=== PATIENT | female | born 1940 | race Caucasian/White ===

== ENCOUNTER 2017-02-18 17:44 | Inpatient (IN) | payer OTHER ==
[~2017-02-18] VITALS: Ht 172.7 cm; Wt 67.1 kg
[~2017-02-18 17:44] MED LIST: ASPIRIN EC325 MG PO; ATORVASTATIN CA40 MG PO; EFFIENT10 MG PO; LISINOPRIL5 MG PO; LOPRESSOR25 MG PO; NITROSTAT0.4 MG SL; SIMVASTATIN10 MG PO
[2017-02-18 19:11] LABS: CHLORIDE 101 mEq/L (99-109); POTASSIUM 3.9 mEq/L (3.7-5.4); SODIUM 138 mEq/L (136-147)
[2017-02-18 19:13] LABS: GLUCOSE 200 mg/dL (70-99)
[2017-02-18 19:14] LABS: ANION GAP 18 MEQ/L (2-14)
[2017-02-18 19:16] LABS: ALKALINE PHOSPHATASE 87 IU/L (3-129)
[2017-02-18 19:17] LABS: GFR ESTIMATE (CALCULATED) 58 mL/min/
[2017-02-18 19:18] LABS: UREA NITROGEN (BUN) 16 mg/dL (9-23)
[2017-02-18 19:20] LABS: LIPASE 38 U/L (1.0-51.0)
[2017-02-18 19:26] LABS: BASOPHIL COUNT 0.1 K/uL (0-0.1); EOSINOPHIL (%) 1.2 % (0-5); EOSINOPHIL COUNT 0.2 K/uL (0-0.3); HEMATOCRIT 51.5 % (36.0-46.0); IMMATURE GRANULOCYTE (%) 1.4 % (0.0-0.7); IMMATURE GRANULOCYTE COUNT 0.2 K/uL; LYMPHOCYTE COUNT 2.3 K/uL (1.0-2.8); MCH 32.9 PG (29.0-34.0); MCHC 32.8 G/DL (30.0-36.0); MCV 100.4 FL (83-99); MEAN PLAT.VOLUME 11.3 uM^3 (9.5-12.4); MONOCYTE (%) 4.9 % (3-12); MONOCYTE COUNT 0.8 K/uL (0-0.8); NEUTROPHIL (%) 77.3 % (45-76); PLATELET COUNT 718 K/uL (156-360); RBC DIS.WIDTH-CV 13.4 % (11.8-14.6); RED BLOOD COUNT 5.13 M/uL (3.80-5.20); WHITE BLOOD COUNT 15.5 K/uL (4.1-10.2)
[2017-02-18] MEDS ORDERED: EFFIENT10 MG PO (22:12)
[2017-02-18] MEDS ORDERED: LO-DOSE ASPIRIN81 M1 PO (22:13)
[2017-02-18] MEDS ORDERED: PSORIASIS CREAM TP (22:15)
[2017-02-18 22:18] LABS: ADD MIUA? NO; BILIRUBIN NEGATIVE; BLOOD NEGATIVE; COLOR YELLOW ((YELLOW)); GLUCOSE (STRIP) 50; KETONES 80; LEUKOCYTES NEGATIVE; NITRITE NEGATIVE; PROTEIN (STRIP) NEGATIVE; UCUL ADDED? NO; UROBILINOGEN 0.2 MG/DL (0.2-1.0)
[2017-02-18 22:25] LABS: SPECIFIC GRAVITY 1.062 (1.000-1.030)
[2017-02-19] VITALS (28 sets, daily range): BP systolic 59–148; BP diastolic 35–100
[2017-02-19 06:18] LABS: HEMATOCRIT 55.5 % (36.0-46.0); MCH 33.1 PG (29.0-34.0); MCHC 31.7 G/DL (30.0-36.0); MCV 104.3 FL (83-99); MEAN PLAT.VOLUME 11.2 uM^3 (9.5-12.4); PLATELET COUNT 652 K/uL (156-360); RBC DIS.WIDTH-CV 13.7 % (11.8-14.6); RBC DIS.WIDTH-SD 53.3 % (39-53); RED BLOOD COUNT 5.32 M/uL (3.80-5.20)
[2017-02-19 06:28] LABS: BASE EXCESS -10.4 mEq/L (-3 to +3); BICARBONATE 15.7 mEq/L (22-26); CARBOXY HGB 1.6 % (0-5); METHEMOGLOBIN 1.6 % (0-1.5); PCO2 35 mm Hg (35-45); PO2 119 mm Hg (80-100)
[2017-02-19 06:29] LABS: COMMENTS - BLOOD GASES C+; DEVICE 840; FI02 40 %; MECHANICAL RATE 14 resp/min; MODE AC; SITE RB; TIDAL VOLUME 450 ML; TOTAL RESP RATE 14 resp/min; pH 7.26 (7.35-7.45)
[2017-02-19 06:35] LABS: WHITE BLOOD COUNT 36.9 K/uL (4.1-10.2)
[2017-02-19 06:35] LABS: TRIGLYCERIDES 102 MG/DL (Normal: <150)
[2017-02-19 06:45] LABS: ALKALINE PHOSPHATASE 89 IU/L (3-129); ANION GAP 14 MEQ/L (2-14); CHLORIDE 111 MEQ/L (99-109); GFR ESTIMATE (CALCULATED) > 59 mL/min/; GLUCOSE 182 mg/dL (70-99); MAGNESIUM 1.9 mg/dl (1.3-2.7); SAMPLE HEMOLYSIS CHECK 1; SAMPLE ICTERIC CHECK 0; SAMPLE LIPEMIA CHECK 0; SODIUM 141 MEQ/L (136-147); UREA NITROGEN (BUN) 17 mg/dL (9-23)
[2017-02-19 06:48] LABS: METH RESISTANT S AUREUS PCR NEGATIVE (NEGATIVE)
[2017-02-19 06:51] LABS: POTASSIUM 5.3 MEQ/L (3.7-5.4)
[2017-02-19 06:52] LABS: PROBE CHECK PASS; SPECIMEN PROCESSING CONTROL PASS
[2017-02-19 08:01] LABS: BASOPHIL COUNT 0.1 K/uL (0-0.1); EOSINOPHIL (%) 0 % (0-5); IMMATURE GRANULOCYTE (%) 4.3 % (0.0-0.7); IMMATURE GRANULOCYTE COUNT 1.6 K/uL; INSTRUMENT ABS NEUTROPHIL CT 31.3 K/uL; LYMPHOCYTE COUNT 1.4 K/uL (1.0-2.8); MONOCYTE (%) 6.9 % (3-12); MONOCYTE COUNT 2.5 K/uL (0-0.8); NEUTROPHIL (%) 84.7 % (45-76); NEUTROPHIL COUNT 31.3 K/uL (1.8-6.4)
[2017-02-19 09:39] LABS: INTER. NORMALIZED RATIO 1.3; PROTHROMBIN TIME 13.2 (9.2-11.2); PTT 32.2 (25-32)
[2017-02-19 09:55] LABS: TROP-I INTERPRETATION NEGATIVE; TROPONIN-I 0.27 ng/mL (0.0-0.30)
[2017-02-19 11:52] LABS: BASOPHIL COUNT 0.1 K/uL (0-0.1); EOSINOPHIL (%) 0 % (0-5); HEMATOCRIT 46.8 % (36.0-46.0); IMMATURE GRANULOCYTE (%) 4.1 % (0.0-0.7); IMMATURE GRANULOCYTE COUNT 1.1 K/uL; INSTRUMENT ABS NEUTROPHIL CT 22.9 K/uL; LYMPHOCYTE COUNT 1.3 K/uL (1.0-2.8); MCH 32.9 PG (29.0-34.0); MCHC 31.6 G/DL (30.0-36.0); MEAN PLAT.VOLUME 11.5 uM^3 (9.5-12.4); MONOCYTE (%) 6.9 % (3-12); MONOCYTE COUNT 1.9 K/uL (0-0.8); NEUTROPHIL (%) 83.9 % (45-76); NEUTROPHIL COUNT 22.9 K/uL (1.8-6.4); PLATELET COUNT 648 K/uL (156-360); RBC DIS.WIDTH-CV 13.7 % (11.8-14.6); RBC DIS.WIDTH-SD 52.9 % (39-53); WHITE BLOOD COUNT 27.2 K/uL (4.1-10.2)
[2017-02-19 14:48] LABS: HEMATOCRIT 42.1 % (36.0-46.0); MCV 102.7 FL (83-99)
[2017-02-19 15:11] LABS: ANION GAP 12 MEQ/L (2-14); CHLORIDE 111 MEQ/L (99-109); GFR ESTIMATE (CALCULATED) > 59 mL/min/; GLUCOSE 182 mg/dL (70-99); SAMPLE HEMOLYSIS CHECK 2; SAMPLE ICTERIC CHECK 0; SAMPLE LIPEMIA CHECK 0; SODIUM 138 MEQ/L (136-147); UREA NITROGEN (BUN) 21 mg/dL (9-23)
[2017-02-19 15:15] LABS: POTASSIUM 5.5 MEQ/L (3.7-5.4)
[2017-02-19 19:53] LABS: TROP-I INTERPRETATION INDETERMINATE; TROPONIN-I 0.34 ng/mL (0.0-0.30)
[2017-02-20] VITALS (12 sets, daily range): BP systolic 112–137; BP diastolic 57–69
[2017-02-20 00:44] LABS: HEMATOCRIT 31.5 % (36.0-46.0)
[2017-02-20 07:05] LABS: EOSINOPHIL (%) 0.1 % (0-5); HEMATOCRIT 28.2 % (36.0-46.0); IMMATURE GRANULOCYTE (%) 1.7 % (0.0-0.7); IMMATURE GRANULOCYTE COUNT 0.3 K/uL; INSTRUMENT ABS NEUTROPHIL CT 13.8 K/uL; LYMPHOCYTE COUNT 1.8 K/uL (1.0-2.8); MCH 33.6 PG (29.0-34.0); MCV 101.8 FL (83-99); MONOCYTE (%) 8.3 % (3-12); MONOCYTE COUNT 1.4 K/uL (0-0.8); NEUTROPHIL (%) 79.3 % (45-76); NEUTROPHIL COUNT 13.8 K/uL (1.8-6.4); RBC DIS.WIDTH-CV 13.9 % (11.8-14.6)
[2017-02-20 07:06] LABS: ANION GAP 11 MEQ/L (2-14); CHLORIDE 114 MEQ/L (99-109); GFR ESTIMATE (CALCULATED) > 59 mL/min/; SAMPLE HEMOLYSIS CHECK 0; SAMPLE ICTERIC CHECK 0; SAMPLE LIPEMIA CHECK 0; SODIUM 143 MEQ/L (136-147); UREA NITROGEN (BUN) 18 mg/dL (9-23)
[2017-02-20 07:08] LABS: GLUCOSE 90 mg/dL (70-99); POTASSIUM 3.4 MEQ/L (3.7-5.4)
[2017-02-20 07:09] LABS: RED BLOOD COUNT 2.77 M/uL (3.80-5.20); WHITE BLOOD COUNT 17.4 K/uL (4.1-10.2)
[2017-02-20 08:17] LABS: HEMATOLOGY COMMENT 1 SMEAR COMPATIBLE; MEAN PLAT.VOLUME 11.4 uM^3 (9.5-12.4)
[2017-02-20 08:19] LABS: PLATELET COUNT 310 K/uL (156-360)
[2017-02-20 12:39] LABS: TROP-I INTERPRETATION NEGATIVE; TROPONIN-I 0.22 ng/mL (0.0-0.30)
[2017-02-20 14:20] LABS: HEMATOCRIT 27.5 % (36.0-46.0); MCV 101.1 FL (83-99)
[2017-02-21 04:56] LABS: BASE EXCESS -2.2 mEq/L (-3 to +3); BICARBONATE 20.3 mEq/L (22-26); CARBOXY HGB 1.9 % (0-5); COMMENTS - BLOOD GASES C+; DEVICE VENTILATOR; FI02 24 %; METHEMOGLOBIN 1.3 % (0-1.5); MODE AC; PCO2 26 mm Hg (35-45); PO2 91 mm Hg (80-100); SITE LR A LINE
[2017-02-21 04:57] LABS: MECHANICAL RATE 20 resp/min; PEEP 5 CM/H20; TIDAL VOLUME 450 ML; TOTAL RESP RATE 20 resp/min
[2017-02-21 05:55] LABS: EOSINOPHIL (%) 0.3 % (0-5); EOSINOPHIL COUNT 0.1 K/uL (0-0.3); HEMATOCRIT 24.1 % (36.0-46.0); IMMATURE GRANULOCYTE (%) 2.9 % (0.0-0.7); IMMATURE GRANULOCYTE COUNT 0.4 K/uL; INSTRUMENT ABS NEUTROPHIL CT 12.3 K/uL; LYMPHOCYTE COUNT 1.3 K/uL (1.0-2.8); MCH 33.2 PG (29.0-34.0); MCHC 32.8 G/DL (30.0-36.0); MCV 101.3 FL (83-99); MEAN PLAT.VOLUME 11.8 uM^3 (9.5-12.4); MONOCYTE (%) 6.5 % (3-12); NEUTROPHIL (%) 81.3 % (45-76); NEUTROPHIL COUNT 12.3 K/uL (1.8-6.4); PLATELET COUNT 224 K/uL (156-360); RBC DIS.WIDTH-CV 14.2 % (11.8-14.6); RBC DIS.WIDTH-SD 51.8 % (39-53); RED BLOOD COUNT 2.38 M/uL (3.80-5.20); WHITE BLOOD COUNT 15.2 K/uL (4.1-10.2)
[2017-02-21 06:17] LABS: ANION GAP 11 MEQ/L (2-14); CHLORIDE 113 MEQ/L (99-109); GFR ESTIMATE (CALCULATED) > 59 mL/min/; GLUCOSE 89 mg/dL (70-99); POTASSIUM 3.3 MEQ/L (3.7-5.4); SAMPLE HEMOLYSIS CHECK 0; SAMPLE ICTERIC CHECK 0; SAMPLE LIPEMIA CHECK 0; SODIUM 143 MEQ/L (136-147); UREA NITROGEN (BUN) 16 mg/dL (9-23)
[2017-02-21 09:07] LABS: BASE EXCESS -1.8 mEq/L (-3 to +3); CARBOXY HGB 1.8 % (0-5); COMMENTS - BLOOD GASES NAC+; METHEMOGLOBIN 1.8 % (0-1.5); PCO2 38 mm Hg (35-45); PO2 68 mm Hg (80-100); SITE ALINE; pH 7.39 (7.35-7.45)
[2017-02-21 09:08] LABS: DEVICE PB 840; FI02 24 %; MODE SPONT TC; PEEP 5 CM/H20; TOTAL RESP RATE 20 resp/min
[2017-02-21 10:00] VITALS: BP 105/61
[2017-02-21 21:00] VITALS: BP 126/68
[2017-02-22] VITALS (9 sets, daily range): BP systolic 115–138; BP diastolic 58–69
[2017-02-22 06:35] LABS: EOSINOPHIL (%) 0.8 % (0-5); EOSINOPHIL COUNT 0.1 K/uL (0-0.3); HEMATOCRIT 26.9 % (36.0-46.0); IMMATURE GRANULOCYTE (%) 2.7 % (0.0-0.7); IMMATURE GRANULOCYTE COUNT 0.4 K/uL; INSTRUMENT ABS NEUTROPHIL CT 11.7 K/uL; LYMPHOCYTE COUNT 1.2 K/uL (1.0-2.8); MCH 33.3 PG (29.0-34.0); MCHC 32.3 G/DL (30.0-36.0); MCV 103.1 FL (83-99); MEAN PLAT.VOLUME 11.8 uM^3 (9.5-12.4); MONOCYTE (%) 6.6 % (3-12); NEUTROPHIL (%) 81.2 % (45-76); NEUTROPHIL COUNT 11.7 K/uL (1.8-6.4); PLATELET COUNT 292 K/uL (156-360); RED BLOOD COUNT 2.61 M/uL (3.80-5.20); WHITE BLOOD COUNT 14.4 K/uL (4.1-10.2)
[2017-02-22 06:46] LABS: ANION GAP 13 MEQ/L (2-14); CHLORIDE 110 MEQ/L (99-109); GFR ESTIMATE (CALCULATED) > 59 mL/min/; GLUCOSE 75 mg/dL (70-99); POTASSIUM 3.4 MEQ/L (3.7-5.4); SAMPLE HEMOLYSIS CHECK 0; SAMPLE ICTERIC CHECK 0; SAMPLE LIPEMIA CHECK 0; SODIUM 147 MEQ/L (136-147); UREA NITROGEN (BUN) 18 mg/dL (9-23)
[2017-02-22 06:54] LABS: PLAT.SUFFICIENCY ADEQUATE
[2017-02-23] VITALS (8 sets, daily range): BP systolic 112–136; BP diastolic 57–66
[2017-02-23 06:53] LABS: EOSINOPHIL (%) 1.6 % (0-5); EOSINOPHIL COUNT 0.2 K/uL (0-0.3); HEMATOCRIT 27.7 % (36.0-46.0); IMMATURE GRANULOCYTE (%) 0.7 % (0.0-0.7); IMMATURE GRANULOCYTE COUNT 0.1 K/uL; INSTRUMENT ABS NEUTROPHIL CT 11.1 K/uL; LYMPHOCYTE COUNT 1.1 K/uL (1.0-2.8); MCH 33.3 PG (29.0-34.0); MCHC 32.1 G/DL (30.0-36.0); MCV 103.7 FL (83-99); MEAN PLAT.VOLUME 11.9 uM^3 (9.5-12.4); MONOCYTE (%) 7.3 % (3-12); NEUTROPHIL (%) 81.9 % (45-76); NEUTROPHIL COUNT 11.1 K/uL (1.8-6.4); PLATELET COUNT 345 K/uL (156-360); RBC DIS.WIDTH-CV 14.1 % (11.8-14.6); RBC DIS.WIDTH-SD 53.5 % (39-53); RED BLOOD COUNT 2.67 M/uL (3.80-5.20); WHITE BLOOD COUNT 13.6 K/uL (4.1-10.2)
[2017-02-23 07:59] LABS: ANION GAP 11 MEQ/L (2-14); CHLORIDE 111 MEQ/L (99-109); GFR ESTIMATE (CALCULATED) > 59 mL/min/; GLUCOSE 75 mg/dL (70-99); MAGNESIUM 2.1 mg/dl (1.3-2.7); SODIUM 148 MEQ/L (136-147); UREA NITROGEN (BUN) 20 mg/dL (9-23)
[2017-02-23 08:02] LABS: POTASSIUM 3.6 MEQ/L (3.7-5.4)
[2017-02-24] VITALS (8 sets, daily range): BP systolic 115–139; BP diastolic 56–75
[2017-02-24 07:10] LABS: EOSINOPHIL (%) 2.6 % (0-5); EOSINOPHIL COUNT 0.3 K/uL (0-0.3); HEMATOCRIT 31.2 % (36.0-46.0); IMMATURE GRANULOCYTE (%) 1.3 % (0.0-0.7); IMMATURE GRANULOCYTE COUNT 0.2 K/uL; INSTRUMENT ABS NEUTROPHIL CT 9.4 K/uL; LYMPHOCYTE COUNT 1.3 K/uL (1.0-2.8); MCH 33.2 PG (29.0-34.0); MCHC 32.7 G/DL (30.0-36.0); MCV 101.6 FL (83-99); MEAN PLAT.VOLUME 11.6 uM^3 (9.5-12.4); MONOCYTE (%) 7.6 % (3-12); MONOCYTE COUNT 0.9 K/uL (0-0.8); NEUTROPHIL (%) 77.7 % (45-76); NEUTROPHIL COUNT 9.4 K/uL (1.8-6.4); PLATELET COUNT 427 K/uL (156-360); RBC DIS.WIDTH-CV 13.8 % (11.8-14.6); RBC DIS.WIDTH-SD 50.6 % (39-53); RED BLOOD COUNT 3.07 M/uL (3.80-5.20); WHITE BLOOD COUNT 12.1 K/uL (4.1-10.2)
[2017-02-24 07:40] LABS: ANION GAP 8 MEQ/L (2-14); CHLORIDE 108 MEQ/L (99-109); GFR ESTIMATE (CALCULATED) > 59 mL/min/; MAGNESIUM 2.1 mg/dl (1.3-2.7); POTASSIUM 3.6 MEQ/L (3.7-5.4); SAMPLE HEMOLYSIS CHECK 0; SAMPLE ICTERIC CHECK 0; SAMPLE LIPEMIA CHECK 0; SODIUM 146 MEQ/L (136-147); UREA NITROGEN (BUN) 17 mg/dL (9-23)
[2017-02-24 07:49] LABS: GLUCOSE 114 mg/dL (70-99)
[2017-02-25 04:00] VITALS: BP 102/58
[2017-02-25 06:53] LABS: EOSINOPHIL (%) 4.3 % (0-5); EOSINOPHIL COUNT 0.5 K/uL (0-0.3); HEMATOCRIT 30.9 % (36.0-46.0); IMMATURE GRANULOCYTE (%) 2.6 % (0.0-0.7); IMMATURE GRANULOCYTE COUNT 0.3 K/uL; INSTRUMENT ABS NEUTROPHIL CT 7.6 K/uL; LYMPHOCYTE COUNT 1.5 K/uL (1.0-2.8); MCH 32.9 PG (29.0-34.0); MCV 102.7 FL (83-99); MEAN PLAT.VOLUME 11.5 uM^3 (9.5-12.4); MONOCYTE (%) 9.4 % (3-12); NEUTROPHIL (%) 69.8 % (45-76); NEUTROPHIL COUNT 7.6 K/uL (1.8-6.4); PLATELET COUNT 429 K/uL (156-360); RBC DIS.WIDTH-SD 52.5 % (39-53); RED BLOOD COUNT 3.01 M/uL (3.80-5.20); WHITE BLOOD COUNT 10.8 K/uL (4.1-10.2)
[2017-02-25 07:18] LABS: ANION GAP 7 MEQ/L (2-14); CHLORIDE 108 MEQ/L (99-109); GFR ESTIMATE (CALCULATED) > 59 mL/min/; GLUCOSE 110 mg/dL (70-99); MAGNESIUM 1.8 mg/dl (1.3-2.7); POTASSIUM 3.4 MEQ/L (3.7-5.4); SAMPLE HEMOLYSIS CHECK 0; SAMPLE ICTERIC CHECK 0; SAMPLE LIPEMIA CHECK 0; SODIUM 143 MEQ/L (136-147); UREA NITROGEN (BUN) 15 mg/dL (9-23)
[2017-02-25 07:50] VITALS: BP 128/60
[2017-02-25 12:33] VITALS: BP 110/57
[2017-02-25 17:04] VITALS: BP 134/70
== END 2017-02-25 18:50 | disposition home or self-care (01) | DRG 335 ==
LOC: EME 17:44 → SDC 02-19 02:38 → 4WEST 02-19 04:18 → 4EAST 02-19 04:18 → 4WEST 02-22 13:56 → 4EAST 02-24 04:24
PROVIDERS: Emergency Medicine; Internal Medicine Nephrology; Internal Medicine Pulmonary Disease; Surgery
PROC: 0DTJ0ZZ Resection of Appendix, Open Approach (ICD-10-PCS; principal; 2017-02-19)
PROC: 0DN80ZZ Release Small Intestine, Open Approach (ICD-10-PCS; principal; 2017-02-19)
PROC: 02HV33Z Insertion of Infusion Device into Superior Vena Cava, Percutaneous Approach (ICD-10-PCS; 2017-02-19)
PROC: 0W9B30Z Drainage of Left Pleural Cavity with Drainage Device, Percutaneous Approach (ICD-10-PCS; 2017-02-19)
PROC: 0WJP0ZZ Inspection of Gastrointestinal Tract, Open Approach (ICD-10-PCS; 2017-02-20)
DX: K56.5 Intestinal adhesions [bands] with obstruction (postinfection) (principal); K55.019 Acute (reversible) ischemia of small intestine, extent unspecified; K66.1 Hemoperitoneum; J95.811 Postprocedural pneumothorax; J95.812 Postprocedural air leak; D64.9 Anemia, unspecified; E87.2 Acidosis; I25.10 Atherosclerotic heart disease of native coronary artery without angina pectoris; I10 Essential (primary) hypertension; E78.5 Hyperlipidemia, unspecified; L40.9 Psoriasis, unspecified; R73.9 Hyperglycemia, unspecified; D47.3 Essential (hemorrhagic) thrombocythemia; E86.0 Dehydration; E87.6 Hypokalemia; Z95.5 Presence of coronary angioplasty implant and graft; I25.2 Old myocardial infarction; Z79.82 Long term (current) use of aspirin
CPT/HCPCS: 36600; 36620; 70450; 71010; 71020; 74020; 74177; 80048; 80048 91; 80053; 81003; 82803; 83605; 83690; 83735; 84100; 84478; 84484; 85014; 85018; 85025; 85025 91; 85610; 85730; 86900; 86901; 86920; 87070; 87205; 87641; 88302; 93005; 94002; 94003; 94799; 97530 GO; 99281; 99285; C1729; C9113; J0330; J1100; J1644; J1940; J2250; J2405; J2543; J2704; J3010; J3480; J7030; J7040; J7050; J7120; P9045; P9047

== ENCOUNTER 2017-02-28 16:26 | Inpatient (IN) | payer OTHER ==
[~2017-02-28] VITALS: Ht 172.7 cm; Wt 71.0 kg
[~2017-02-28 16:26] MED LIST changes: +LO-DOSE ASPIRIN81 M1 PO; +PSORIASIS CREAM TP
[2017-02-28 18:05] LABS: HEMATOCRIT 26.8 % (36.0-46.0); MCH 33.1 PG (29.0-34.0); MCHC 32.8 G/DL (30.0-36.0); MCV 100.8 FL (83-99); MEAN PLAT.VOLUME 11.6 uM^3 (9.5-12.4); PLATELET COUNT 525 K/uL (156-360); RBC DIS.WIDTH-CV 14.1 % (11.8-14.6); RBC DIS.WIDTH-SD 50.9 % (39-53); RED BLOOD COUNT 2.66 M/uL (3.80-5.20); WHITE BLOOD COUNT 12.6 K/uL (4.1-10.2)
[2017-02-28 18:14] LABS: CHLORIDE 103 mEq/L (99-109); POTASSIUM 3.2 mEq/L (3.7-5.4); SODIUM 137 mEq/L (136-147)
[2017-02-28 18:16] LABS: GLUCOSE 114 mg/dL (70-99)
[2017-02-28 18:17] LABS: ANION GAP 10 MEQ/L (2-14)
[2017-02-28 18:18] LABS: TOTAL BILIRUBIN 1.2 mg/dL (0.0-1.0)
[2017-02-28 18:20] LABS: ALKALINE PHOSPHATASE 225 IU/L (3-129); GFR ESTIMATE (CALCULATED) > 59 mL/min/
[2017-02-28 18:21] LABS: UREA NITROGEN (BUN) 18 mg/dL (9-23)
[2017-02-28 18:44] LABS: ABS NEUTROPHIL COUNT 9.8; ANISOCYTOSIS 2+; BAND NEUTROPHILS 28.3 % (0-8.0); BASOPHILS 0.9 %; EOSINOPHIL ABS CT 0; INSTRUMENT ABS NEUTROPHIL CT 8.9 K/uL; LYMPHOCYTES 4.4 % (15.0-45.0); MACROCYTES 2+; METAMYELOCYTES 2.7 %; MYELOCYTES 2.6 %; PLAT.SUFFICIENCY INCREASED; POIKILOCYTOSIS 1+; SEG.NEUTROPHILS 49.6 % (46.0-76.0); SMUDGE CELLS 11.5
[2017-02-28 21:53] LABS: HEMATOCRIT 24.3 % (36.0-46.0); MCV 99.2 FL (83-99)
[2017-02-28 22:14] LABS: TROP-I INTERPRETATION NEGATIVE; TROPONIN-I < 0.01 ng/mL (0.0-0.30)
[2017-03-01] VITALS (17 sets, daily range): BP systolic 83–140; BP diastolic 48–66
[2017-03-01 06:20] LABS: MCH 32.8 PG (29.0-34.0); MCHC 32.1 G/DL (30.0-36.0); MCV 102.2 FL (83-99); MEAN PLAT.VOLUME 12.4 uM^3 (9.5-12.4); NRBC (%) 0.2 /100 WBC (0-0); PLATELET COUNT 430 K/uL (156-360); RBC DIS.WIDTH-CV 14.4 % (11.8-14.6); RBC DIS.WIDTH-SD 52.1 % (39-53); WHITE BLOOD COUNT 9.2 K/uL (4.1-10.2)
[2017-03-01 06:24] LABS: ALKALINE PHOSPHATASE 124 IU/L (3-129); ANION GAP 11 MEQ/L (2-14); CHLORIDE 106 MEQ/L (99-109); GFR ESTIMATE (CALCULATED) > 59 mL/min/; GLUCOSE 99 mg/dL (70-99); MAGNESIUM 1.6 mg/dl (1.3-2.7); SAMPLE HEMOLYSIS CHECK 0; SAMPLE ICTERIC CHECK 0; SAMPLE LIPEMIA CHECK 0; SODIUM 140 MEQ/L (136-147); TOTAL BILIRUBIN 0.6 MG/DL (0.0-1.0); UREA NITROGEN (BUN) 17 mg/dL (9-23)
[2017-03-01 06:35] LABS: RED BLOOD COUNT 1.86 M/uL (3.80-5.20)
[2017-03-01 07:07] LABS: ABS NEUTROPHIL COUNT 6.2; ANISOCYTOSIS 1+; BURR CELLS 1+; EOSINOPHIL ABS CT 0.1; EOSINOPHILS 0.9 % (0-5.0); INSTRUMENT ABS NEUTROPHIL CT 5.7 K/uL; LYMPHOCYTES 15.9 % (15.0-45.0); MACROCYTES 1+; METAMYELOCYTES 1.8 %; MYELOCYTES 2.7 %; OVALOCYTES 1+; PLAT.SUFFICIENCY INCREASED; POIKILOCYTOSIS 1+; POLYCHROMASIA 1+; SCHISTOCYTES 1+; SEG.NEUTROPHILS 52.2 % (46.0-76.0)
[2017-03-01 15:15] LABS: HEMATOCRIT 21.8 % (36.0-46.0); MCH 31.5 PG (29.0-34.0); MCHC 33.9 G/DL (30.0-36.0); MEAN PLAT.VOLUME 11.9 uM^3 (9.5-12.4); PLATELET COUNT 356 K/uL (156-360); RBC DIS.WIDTH-CV 17.1 % (11.8-14.6); RBC DIS.WIDTH-SD 56.1 % (39-53)
[2017-03-01 15:29] LABS: MCV 92.8 FL (83-99); RED BLOOD COUNT 2.35 M/uL (3.80-5.20)
[2017-03-01 21:35] LABS: HEMATOCRIT 34.2 % (36.0-46.0); MCH 30.8 PG (29.0-34.0); MCHC 33.9 G/DL (30.0-36.0); MCV 90.7 FL (83-99); NRBC (%) 0.5 /100 WBC (0-0); PLAT.SUFFICIENCY ADEQUATE; PLATELET CLUMPS PRESENT - PLATELET COUNT APPEARS ADQ.; PLATELET COUNT UNABLE TO REPORT K/uL (156-360); RBC DIS.WIDTH-CV 17.2 % (11.8-14.6); RBC DIS.WIDTH-SD 55.4 % (39-53)
[2017-03-01 21:39] LABS: GLOBULINS 1.5 G/DL (2.3-3.5)
[2017-03-01 22:14] LABS: RED BLOOD COUNT 3.77 M/uL (3.80-5.20); WHITE BLOOD COUNT 6.5 K/uL (4.1-10.2)
[2017-03-02] VITALS (20 sets, daily range): BP systolic 90–180; BP diastolic 49–62
[2017-03-02 03:04] LABS: MCH 30.4 PG (29.0-34.0); MEAN PLAT.VOLUME 11.6 uM^3 (9.5-12.4); NRBC (%) 0.2 /100 WBC (0-0); PLATELET COUNT 318 K/uL (156-360); RBC DIS.WIDTH-CV 17.2 % (11.8-14.6); RBC DIS.WIDTH-SD 56.7 % (39-53); WHITE BLOOD COUNT 9.8 K/uL (4.1-10.2)
[2017-03-02 03:14] LABS: CHLORIDE 110 mEq/L (99-109); SODIUM 140 mEq/L (136-147)
[2017-03-02 03:17] LABS: GLUCOSE 123 mg/dL (70-99)
[2017-03-02 03:18] LABS: ANION GAP 9 MEQ/L (2-14); TOTAL BILIRUBIN 1.1 mg/dL (0.0-1.0)
[2017-03-02 03:20] LABS: GFR ESTIMATE (CALCULATED) > 59 mL/min/
[2017-03-02 03:21] LABS: ALKALINE PHOSPHATASE 82 IU/L (3-129); UREA NITROGEN (BUN) 15 mg/dL (9-23)
[2017-03-02 09:08] LABS: INTER. NORMALIZED RATIO 1.2; PROTHROMBIN TIME 12.7 (9.2-11.2); PTT 26.6 (25-32)
[2017-03-02 10:38] LABS: HBSG INDEX 0.28
[2017-03-02 10:39] LABS: AHBS INDEX 0.23; HEPATITIS B SURFACE ANTIBODY Nonreactive; HPCA INDEX 0.05
[2017-03-02 10:41] LABS: ANTI-HEPATITIS A VIRUS (IGM) Nonreactive; ANTI-HEPATITIS B CORE (IGM) Nonreactive; HAV INDEX 0.28; HBC IgM INDEX 0.06
[2017-03-02 14:20] LABS: HEMATOCRIT 33.7 % (36.0-46.0); MCH 29.6 PG (29.0-34.0); MCHC 33.2 G/DL (30.0-36.0); MCV 88.9 FL (83-99); MEAN PLAT.VOLUME 11.4 uM^3 (9.5-12.4); NRBC (%) 0.6 /100 WBC (0-0); PLATELET COUNT 248 K/uL (156-360); RBC DIS.WIDTH-CV 16.8 % (11.8-14.6); RBC DIS.WIDTH-SD 52.7 % (39-53); RED BLOOD COUNT 3.79 M/uL (3.80-5.20); WHITE BLOOD COUNT 14.4 K/uL (4.1-10.2)
[2017-03-02 19:32] LABS: HEMATOCRIT 32.4 % (36.0-46.0); MCH 29.7 PG (29.0-34.0); MEAN PLAT.VOLUME 11.8 uM^3 (9.5-12.4); NRBC (%) 0.5 /100 WBC (0-0); PLATELET COUNT 266 K/uL (156-360); RBC DIS.WIDTH-CV 17.2 % (11.8-14.6); RBC DIS.WIDTH-SD 54.4 % (39-53); WHITE BLOOD COUNT 16.1 K/uL (4.1-10.2)
[2017-03-03] VITALS (7 sets, daily range): BP systolic 103–122; BP diastolic 58–75
[2017-03-03 00:28] LABS: HEMATOCRIT 31.3 % (36.0-46.0); MCH 29.5 PG (29.0-34.0); MCHC 32.9 G/DL (30.0-36.0); MCV 89.7 FL (83-99); MEAN PLAT.VOLUME 11.8 uM^3 (9.5-12.4); NRBC (%) 0.6 /100 WBC (0-0); PLATELET COUNT 212 K/uL (156-360); RBC DIS.WIDTH-CV 17.4 % (11.8-14.6); RBC DIS.WIDTH-SD 54.5 % (39-53); RED BLOOD COUNT 3.49 M/uL (3.80-5.20); WHITE BLOOD COUNT 14.6 K/uL (4.1-10.2)
[2017-03-03 06:30] LABS: HEMATOCRIT 31.1 % (36.0-46.0); MCH 29.4 PG (29.0-34.0); MCHC 33.1 G/DL (30.0-36.0); MCV 88.9 FL (83-99); MEAN PLAT.VOLUME 11.7 uM^3 (9.5-12.4); NRBC (%) 0.5 /100 WBC (0-0); PLATELET COUNT 232 K/uL (156-360); RBC DIS.WIDTH-CV 17.2 % (11.8-14.6); RBC DIS.WIDTH-SD 53.9 % (39-53); WHITE BLOOD COUNT 15.2 K/uL (4.1-10.2)
[2017-03-03 06:54] LABS: ANION GAP 9 MEQ/L (2-14); CHLORIDE 107 MEQ/L (99-109); GFR ESTIMATE (CALCULATED) > 59 mL/min/; GLUCOSE 99 mg/dL (70-99); POTASSIUM 3.4 MEQ/L (3.7-5.4); SAMPLE HEMOLYSIS CHECK 0; SAMPLE ICTERIC CHECK 0; SAMPLE LIPEMIA CHECK 0; SODIUM 139 MEQ/L (136-147); UREA NITROGEN (BUN) 14 mg/dL (9-23)
[2017-03-03 14:17] LABS: ALBUMIN 2.36 G/DL (3.6-4.9); ALBUMIN PERCENT 60.5 %; ALPHA-1 PERCENT 7.7 %; ALPHA-2 GLOBULIN 0.51 G/DL (0.45-0.85); ALPHA-2 PERCENT 13.2 %; BETA PERCENT 11.5 %; GAMMA PERCENT 7.1 %; SERUM GEL NO. 57-8
[2017-03-03 14:39] LABS: HEMATOCRIT 33.6 % (36.0-46.0); MCH 29.2 PG (29.0-34.0); MCHC 32.7 G/DL (30.0-36.0); MCV 89.1 FL (83-99); MEAN PLAT.VOLUME 11.4 uM^3 (9.5-12.4); NRBC (%) 0.3 /100 WBC (0-0); PLATELET COUNT 241 K/uL (156-360); RBC DIS.WIDTH-SD 53.9 % (39-53); RED BLOOD COUNT 3.77 M/uL (3.80-5.20); WHITE BLOOD COUNT 16.8 K/uL (4.1-10.2)
[2017-03-03 19:26] LABS: C DIFF TOXIN NEGATIVE (NEGATIVE)
[2017-03-03 19:40] LABS: PROBE CHECK PASS; SPECIMEN PROCESSING CONTROL PASS
[2017-03-04 04:57] VITALS: BP 118/60
[2017-03-04 07:55] VITALS: BP 126/61
[2017-03-04 08:26] LABS: HEMATOCRIT 34.5 % (36.0-46.0); MCHC 32.8 G/DL (30.0-36.0); MCV 91.5 FL (83-99); MEAN PLAT.VOLUME 11.4 uM^3 (9.5-12.4); NRBC (%) 0.3 /100 WBC (0-0); PLATELET COUNT 210 K/uL (156-360); RBC DIS.WIDTH-CV 16.9 % (11.8-14.6); RBC DIS.WIDTH-SD 54.8 % (39-53); RED BLOOD COUNT 3.77 M/uL (3.80-5.20); WHITE BLOOD COUNT 19.2 K/uL (4.1-10.2)
[2017-03-04 09:41] LABS: ABS NEUTROPHIL COUNT 14.5; ANISOCYTOSIS 1+; BAND NEUTROPHILS 25.5 % (0-8.0); EOSINOPHIL ABS CT 0.2; EOSINOPHILS 0.9 % (0-5.0); INSTRUMENT ABS NEUTROPHIL CT 11.4 K/uL; LYMPHOCYTES 4.6 % (15.0-45.0); MACROCYTES 1+; METAMYELOCYTES 4.5 %; MYELOCYTES 4.5 %; PLAT.SUFFICIENCY ADEQUATE; POIKILOCYTOSIS 1+; POLYCHROMASIA 1+
[2017-03-04 10:48] LABS: DIRECT BILIRUBIN 0.3 mg/dL (0.0-0.3)
[2017-03-04 10:49] LABS: ALKALINE PHOSPHATASE 81 IU/L (3-129); TOTAL BILIRUBIN 0.9 MG/DL (0.0-1.0)
[2017-03-04 12:00] VITALS: BP 127/59
[2017-03-04 14:10] LABS: ADD MIUA? YES; BILIRUBIN NEGATIVE; BLOOD SMALL; COLOR YELLOW ((YELLOW)); GLUCOSE (STRIP) NEGATIVE; KETONES 5; LEUKOCYTES TRACE; NITRITE NEGATIVE; PROTEIN (STRIP) NEGATIVE; SPECIFIC GRAVITY 1.015 (1.000-1.030); UROBILINOGEN 0.2 MG/DL (0.2-1.0)
[2017-03-04 14:29] LABS: BACTERIA RARE /HPF; EPITHELIAL CELLS NONE SEEN /HPF; MUCUS TRACE /LPF; RED BLOOD CELLS 0-5 /HPF (0-5); WHITE BLOOD CELLS 0-5 /HPF (0-5)
[2017-03-04 20:00] VITALS: BP 131/62
[2017-03-05] VITALS (7 sets, daily range): BP systolic 114–129; BP diastolic 61–75
[2017-03-05 05:51] LABS: HEMATOCRIT 34.5 % (36.0-46.0); MCH 29.5 PG (29.0-34.0); MCHC 31.9 G/DL (30.0-36.0); MCV 92.5 FL (83-99); MEAN PLAT.VOLUME 11.5 uM^3 (9.5-12.4); NRBC (%) 0.1 /100 WBC (0-0); PLATELET COUNT 215 K/uL (156-360); RBC DIS.WIDTH-CV 17.5 % (11.8-14.6); RBC DIS.WIDTH-SD 53.7 % (39-53); RED BLOOD COUNT 3.73 M/uL (3.80-5.20); WHITE BLOOD COUNT 16.7 K/uL (4.1-10.2)
[2017-03-05 07:33] LABS: POINT-OF-CARE METER ID UU14174216
[2017-03-05 07:44] LABS: ABS NEUTROPHIL COUNT 13.6; ANISOCYTOSIS 2+; BASOPHILS 0.9 %; EOSINOPHIL ABS CT 0.2; EOSINOPHILS 0.9 % (0-5.0); INSTRUMENT ABS NEUTROPHIL CT 10.4 K/uL; LYMPHOCYTES 5.3 % (15.0-45.0); MACROCYTES 1+; METAMYELOCYTES 3.5 %; MYELOCYTES 2.6 %; PLAT.SUFFICIENCY ADEQUATE; POLYCHROMASIA 1+
[2017-03-05 07:45] LABS: SEG.NEUTROPHILS 74.5 % (46.0-76.0)
[2017-03-06 04:15] VITALS: BP 124/62
[2017-03-06 06:22] LABS: HEMATOCRIT 33.9 % (36.0-46.0); MCH 29.6 PG (29.0-34.0); MCHC 32.4 G/DL (30.0-36.0); MCV 91.1 FL (83-99); MEAN PLAT.VOLUME 11.4 uM^3 (9.5-12.4); RBC DIS.WIDTH-CV 17.3 % (11.8-14.6); RED BLOOD COUNT 3.72 M/uL (3.80-5.20); WHITE BLOOD COUNT 16.4 K/uL (4.1-10.2)
[2017-03-06 06:27] LABS: PLATELET COUNT 299 K/uL (156-360)
[2017-03-06 07:35] LABS: ABS NEUTROPHIL COUNT 13.2; ANISOCYTOSIS 1+; ATYPICAL LYMPHOCYTE 2.5 %; BAND NEUTROPHILS 11.9 % (0-8.0); EOSINOPHIL ABS CT 1.2; EOSINOPHILS 7.6 % (0-5.0); INSTRUMENT ABS NEUTROPHIL CT 10.8 K/uL; LYMPHOCYTES 2.5 % (15.0-45.0); MACROCYTES 1+; METAMYELOCYTES 0.9 %; MYELOCYTES 0.9 %; PLAT.SUFFICIENCY ADEQUATE; POLYCHROMASIA 1+; SEG.NEUTROPHILS 68.6 % (46.0-76.0)
[2017-03-06 08:27] VITALS: BP 126/67
[2017-03-06 11:30] VITALS: BP 120/69
[2017-03-06 15:09] VITALS: BP 116/61
[2017-03-06 19:56] VITALS: BP 128/68
[2017-03-06 22:42] VITALS: BP 106/58
[2017-03-07 04:23] VITALS: BP 125/65
[2017-03-07 07:15] VITALS: BP 116/60
[2017-03-07 11:13] VITALS: BP 106/57
[2017-03-07] MEDS ORDERED: PLAVIX75 MG PO (12:22)
== END 2017-03-07 14:55 | disposition home health service (06) | DRG 357 ==
LOC: EME 16:26 → EDOF 22:15 → 4EAST 22:15
PROVIDERS: Emergency Medicine; Specialist; Surgery
DX: K57.31 Diverticulosis of large intestine without perforation or abscess with bleeding (principal); I82.413 Acute embolism and thrombosis of femoral vein, bilateral; K56.5 Intestinal adhesions [bands] with obstruction (postinfection); J90 Pleural effusion, not elsewhere classified; I25.10 Atherosclerotic heart disease of native coronary artery without angina pectoris; I10 Essential (primary) hypertension; K56.60 Unspecified intestinal obstruction; I95.9 Hypotension, unspecified; K52.9 Noninfective gastroenteritis and colitis, unspecified; I25.5 Ischemic cardiomyopathy; K63.5 Polyp of colon; J44.9 Chronic obstructive pulmonary disease, unspecified; K80.20 Calculus of gallbladder without cholecystitis without obstruction; L40.9 Psoriasis, unspecified; K92.1 Melena; E78.5 Hyperlipidemia, unspecified; K64.8 Other hemorrhoids; I25.2 Old myocardial infarction; Z95.5 Presence of coronary angioplasty implant and graft
CPT/HCPCS: 71010; 71020; 74020; 74177; 78278; 80048; 80053; 80076; 81003; 82948; 83605; 83735; 84100; 84165; 84484; 85014; 85018; 85025; 85027; 85610; 85730; 86705; 86706; 86709; 86803; 86900; 86901; 86920; 87040; 87177; 87340; 87493; 87506; 93005; 93970; 94799; 99281; 99285; A9560; C1769; C9113; J0744; J1644; J1650; J2354; J2405; J2597; J2765; J3480; J7030; J7050; J7120; P9016; P9035; P9040; S0030

== ENCOUNTER 2017-03-13 07:10 | Emergency (ER) | payer OTHER ==
[~2017-03-13] VITALS: Ht 172.7 cm; Wt 59.9 kg
[~2017-03-13 07:10] MED LIST changes: +PLAVIX75 MG PO
[2017-03-13 08:27] LABS: BASOPHIL COUNT 0.1 K/uL (0-0.1); EOSINOPHIL (%) 0.7 % (0-5); EOSINOPHIL COUNT 0.1 K/uL (0-0.3); HEMATOCRIT 44.9 % (36.0-46.0); IMMATURE GRANULOCYTE (%) 1.1 % (0.0-0.7); IMMATURE GRANULOCYTE COUNT 0.2 K/uL; INSTRUMENT ABS NEUTROPHIL CT 11.4 K/uL; LYMPHOCYTE COUNT 1.5 K/uL (1.0-2.8); MCH 30.5 PG (29.0-34.0); MCHC 32.3 G/DL (30.0-36.0); MCV 94.3 FL (83-99); MEAN PLAT.VOLUME 11.2 uM^3 (9.5-12.4); MONOCYTE (%) 7.4 % (3-12); MONOCYTE COUNT 1.1 K/uL (0-0.8); NEUTROPHIL (%) 79.8 % (45-76); NEUTROPHIL COUNT 11.4 K/uL (1.8-6.4); RBC DIS.WIDTH-CV 18.2 % (11.8-14.6); RBC DIS.WIDTH-SD 58.9 % (39-53); WHITE BLOOD COUNT 14.3 K/uL (4.1-10.2)
[2017-03-13 08:28] LABS: PLATELET COUNT 514 K/uL (156-360); RED BLOOD COUNT 4.76 M/uL (3.80-5.20)
[2017-03-13 08:33] LABS: CHLORIDE 101 mEq/L (99-109); SODIUM 136 mEq/L (136-147)
[2017-03-13 08:35] LABS: GLUCOSE 127 mg/dL (70-99)
[2017-03-13 08:36] LABS: ANION GAP 13 MEQ/L (2-14)
[2017-03-13 08:39] LABS: GFR ESTIMATE (CALCULATED) > 59 mL/min/
[2017-03-13 08:40] LABS: UREA NITROGEN (BUN) 7 mg/dL (9-23)
[2017-03-13 09:29] LABS: ADD MIUA? YES; BILIRUBIN NEGATIVE; BLOOD NEGATIVE; COLOR YELLOW ((YELLOW)); GLUCOSE (STRIP) NEGATIVE; KETONES 5; LEUKOCYTES NEGATIVE; NITRITE NEGATIVE; PROTEIN (STRIP) NEGATIVE; SPECIFIC GRAVITY 1.014 (1.000-1.030); UROBILINOGEN 0.2 MG/DL (0.2-1.0)
[2017-03-13 09:44] LABS: BACTERIA NONE SEEN /HPF; EPITHELIAL CELLS RARE /HPF; MUCUS NONE SEEN /LPF; RED BLOOD CELLS 0-5 /HPF (0-5); WHITE BLOOD CELLS 0-5 /HPF (0-5)
[2017-03-13] MEDS ORDERED: AUGMENTIN875 MG PO (12:03)
[2017-03-13] MEDS ORDERED: MIRALAX17 GM PO (14:02)
[2017-03-13 14:35] VITALS: BP 150/85
== END 2017-03-13 14:36 | disposition home or self-care (01) ==
LOC: EME 07:10
PROVIDERS: Emergency Medicine
DX: R10.9 Unspecified abdominal pain (principal); K59.00 Constipation, unspecified; F41.9 Anxiety disorder, unspecified; I25.2 Old myocardial infarction; Z86.718 Personal history of other venous thrombosis and embolism
CPT/HCPCS: 74177; 80048; 81003; 85025; 99281; 99285; J7030